=== PATIENT | male | born 1985 | race Asian ===

== ENCOUNTER 2019-11-14 20:22 | Emergency (ER) | payer OTHER ==
[~2019-11-14] VITALS: Ht 167.6 cm; Wt 57.6 kg
[2019-11-14 20:29] VITALS: BP 122/70
--- NOTE | 2019-11-14 21:18 | NUR ---
AT THE BED SIDE
[2019-11-14] MEDS ORDERED: IBUPROFEN 400 MG TABLET ONE (21:29)
[2019-11-14] MEDS ORDERED: IBUPROFEN 400 MG TABLET PO ONE (21:30)
== END 2019-11-14 21:49 | disposition home or self-care (01) ==
LOC: ER 20:25
DX: R59.0 Localized enlarged lymph nodes (principal); F10.10 Alcohol abuse, uncomplicated; Y90.9 Presence of alcohol in blood, level not specified
CPT/HCPCS: 70360-TC